=== PATIENT | female | born 1935 | race African-American/Black ===

== ENCOUNTER 2020-06-30 09:47 | Inpatient (IN) | payer MEDICARE, MEDICAID ==
[~2020-06-30] VITALS: Ht 160 cm; Wt 68.0 kg
[2020-06-30] MEDS ORDERED: ACETAMINOPHEN WITH CODEINE 300/30MG TABLET PO ONE (10:30)
[2020-06-30 11:36] LABS: CHLORIDE 107 mEq/L (98-107)
[2020-06-30 11:41] LABS: BASOPHILS % 0.8 % (0.0-2.0); EOSINOPHILS % 0.7 % (0.0-5.0); HEMATOCRIT. 36.1 % (36.0-48.0); HEMOGLOBIN. 12.1 g/dL (12.0-16.0); LYMPHOCYTES % 32.4 % (20.0-50.0); MEAN CORPUSCULAR HEMOGLOBIN 31.5 pg (28.0-32.0); MEAN CORPUSCULAR VOLUME 94.2 fL (81.0-99.0); MEAN PLATELET VOLUME 10.7 fl (7.4-10.4); MONOCYTES % 7.8 % (2.0-8.0); NEUTROPHILS % 58.3 % (40.0-76.0); PLATELET 98 x1000/uL (130-400); RED BLOOD CELL COUNT 3.84 mill/uL (4.2-5.4); RED CELL DISTRIBUTION WIDTH 16.1 % (11.6-14.6)
[2020-06-30] MEDS ORDERED: SODIUM CHLORIDE 0.9% 1,000 ML IV ONE (13:30)
[2020-06-30 13:47] LABS: CLARITY URINE CLOUDY (CLEAR); COLOR URINE YELLOW (YELLOW); KETONES URINE NEGATIVE (NEGATIVE); LEUKOCYTE ESTERASE URINE 2+ (NEGATIVE); NITRITE URINE NEGATIVE (NEGATIVE); OCCULT BLOOD URINE TRACE (NEGATIVE); PROTEIN URINE TRACE (NEGATIVE); SPECIFIC GRAVITY URINE 1.007 (1.005-1.030); UROBILINOGEN URINE 0.2 E.U./dL (0.2-1.0)
[2020-06-30] MEDS ORDERED: CEFTRIAXONE 1 G PREMIX 50 ML IV ONE (14:45)
[2020-06-30 22:30] VITALS: BP 164/72
[2020-06-30] MEDS ORDERED: ENOXAPARIN 40MG/0.4ML SYR SUBCUT SCH (22:30)
[2020-06-30] MEDS ORDERED: ACETAMINOPHEN 325MG TABLET PO PRN (22:30)
[2020-06-30] MEDS ORDERED: LORAZEPAM 0.5MG TABLET PO PRN (22:30)
[2020-06-30] MEDS ORDERED: MORPHINE SULFATE 2 MG/ML CPJ (NOT FOR IM USE) IV PRN (22:30)
[2020-06-30] MEDS ORDERED: ONDANSETRON HCL 4MG/2ML INJ IV PRN (22:30)
[2020-06-30] MEDS: CLONIDINE 0.1MG TABLET PO PRN (23:46)
[2020-07-01] VITALS: BP 163/72
[2020-07-01] MEDS: SODIUM CHLORIDE 0.9% 1,000 ML IV SCH ×3 (01:33→18:42)
[2020-07-01 04:00] VITALS: BP 124/58
[2020-07-01 07:17] LABS: BASOPHILS % 0.9 % (0.0-2.0); EOSINOPHILS % 2.8 % (0.0-5.0); HEMOGLOBIN. 10.3 g/dL (12.0-16.0); LYMPHOCYTES % 46.8 % (20.0-50.0); MEAN CORPUSCULAR HEMOGLOBIN 31.5 pg (28.0-32.0); MEAN CORPUSCULAR VOLUME 94.7 fL (81.0-99.0); MEAN PLATELET VOLUME 10.9 fl (7.4-10.4); MONOCYTES % 11.3 % (2.0-8.0); NEUTROPHILS % 38.2 % (40.0-76.0); PLATELET 78 x1000/uL (130-400); RED BLOOD CELL COUNT 3.28 mill/uL (4.2-5.4); RED CELL DISTRIBUTION WIDTH 15.8 % (11.6-14.6)
[2020-07-01 07:18] LABS: CHLORIDE 115 mEq/L (98-107)
[2020-07-01 07:30] LABS: PHOSPHORUS 2.5 mg/dL (2.5-4.9)
[2020-07-01 08:24] VITALS: BP 121/40
[2020-07-01 12:07] VITALS: BP 130/49
[2020-07-01 15:47] VITALS: BP 140/48
[2020-07-01 20:00] VITALS: BP 125/62
[2020-07-01] MEDS ORDERED: IOHEXOL-300 100 ML BOTTLE ONE (22:30)
[2020-07-02 04:00] VITALS: BP 127/79
[2020-07-02] MEDS: SODIUM CHLORIDE 0.9% 1,000 ML IV SCH ×2 (05:00→15:37)
[2020-07-02 08:00] VITALS: BP 170/73
[2020-07-02] MEDS: CLONIDINE 0.1MG TABLET PO PRN ×2 (10:52→21:20)
[2020-07-02] MEDS: HYDROCODONE/ACETAMINOPHEN 5/325MG TABLET PO PRN ×2 (10:52→15:34)
[2020-07-02 12:00] VITALS: BP 158/74
[2020-07-02] MEDS: LIDOCAINE 5% PATCH TOP SCH (15:36)
[2020-07-02] MEDS: LIDOCAINE HCL 4% CREAM 76GM TUBE TP SCH ×2 (15:36→17:00)
[2020-07-02 16:00] VITALS: BP 139/71
[2020-07-02 20:00] VITALS: BP 175/69
[2020-07-02 21:03] VITALS: BP_SYST 175
[2020-07-02] MEDS: AMLODIPINE 5MG TABLET PO SCH (23:43)
[2020-07-02] MEDS: METOPROLOL TARTRATE 25MG TABLET PO SCH (23:43)
[2020-07-03] VITALS: BP 162/52
[2020-07-03 04:00] VITALS: BP 193/63
[2020-07-03] MEDS: HYDROCODONE/ACETAMINOPHEN 5/325MG TABLET PO PRN ×2 (04:13→09:04)
[2020-07-03 08:00] VITALS: BP 171/63
[2020-07-03] MEDS: AMLODIPINE 5MG TABLET PO SCH ×2 (08:59→21:59)
[2020-07-03] MEDS: METOPROLOL TARTRATE 25MG TABLET PO SCH ×3 (09:00→21:59)
[2020-07-03] MEDS: LIDOCAINE 5% PATCH TOP SCH (09:00)
[2020-07-03] MEDS: LIDOCAINE HCL 4% CREAM 76GM TUBE TP SCH ×3 (09:00→17:12)
[2020-07-03] MEDS: CLONIDINE 0.1MG TABLET PO PRN (09:03)
[2020-07-03 12:00] VITALS: BP 143/55
[2020-07-03] MEDS: LOSARTAN POTASSIUM 100 MG TABLET PO SCH (12:23)
[2020-07-03 16:00] VITALS: BP 150/63
[2020-07-03 20:00] VITALS: BP 151/59
[2020-07-04] VITALS: BP 131/88
[2020-07-04 04:00] VITALS: BP 137/63
[2020-07-04] MEDS: LIDOCAINE HCL 4% CREAM 76GM TUBE TP SCH (09:33)
[2020-07-04] MEDS: LOSARTAN POTASSIUM 100 MG TABLET PO SCH (09:34)
[2020-07-04] MEDS: METOPROLOL TARTRATE 25MG TABLET PO SCH (09:34)
[2020-07-04] MEDS: LIDOCAINE 5% PATCH TOP SCH (09:34)
[2020-07-04] MEDS: AMLODIPINE 5MG TABLET PO SCH (09:36)
[2020-07-04] MEDS: HYDROCODONE/ACETAMINOPHEN 5/325MG TABLET PO PRN (11:27)
[2020-07-04 11:41] VITALS: BP 136/69
== END 2020-07-04 12:18 | DRG 299 ==
LOC: ER 09:47 → 8WST 16:24 → ENRESERV 20:58
PROVIDERS: ADMIT Internal Medicine Nephrology; ATTEND Internal Medicine Nephrology
DX: I77.1 Stricture of artery (principal); N17.0 Acute kidney failure with tubular necrosis; D61.818 Other pancytopenia; G82.20 Paraplegia, unspecified; N39.0 Urinary tract infection, site not specified; R22.1 Localized swelling, mass and lump, neck; G89.4 Chronic pain syndrome; G62.9 Polyneuropathy, unspecified; I10 Essential (primary) hypertension; M19.90 Unspecified osteoarthritis, unspecified site; M48.061 Spinal stenosis, lumbar region without neurogenic claudication; M54.16 Radiculopathy, lumbar region; M17.0 Bilateral primary osteoarthritis of knee; M43.10 Spondylolisthesis, site unspecified
CPT/HCPCS: 36415; 70490; 70491; 72148; 73560; 80048; 80053; 81003; 84100; 84443; 85025; 93880; 97162; 97166; 97530; 99285; J0696; J2270; J2405; J7030; Q9967